=== PATIENT | female | born 1950 | race Caucasian/White ===

== ENCOUNTER 2018-07-06 13:56 | Emergency (ER) | payer MEDICARE ==
[2018-07-06 14:05] VITALS: TEMP 97.8
[2018-07-06] MEDS ORDERED: SODIUM CHLORIDE 0.9% 500 ML 500 ML IV STA (14:07)
[2018-07-06 14:56] LABS: Basophils # (A) 0.1 k/uL (0-0.2); Basophils % (A) 1 %; Eosinophils # (A) 0.3 k/uL (0-0.7); Eosinophils % (A) 4 %; HCT 41.5 % (34.0-46.0); HGB 12.8 gm/dL (11.4-16.0); Hypochromasia Marked; Lymphocytes # (A) 1.3 k/uL (1.0-4.8); Lymphocytes % (A) 16 %; MCH 32.5 pg (25.0-35.0); MCHC 30.9 g/dL (31.0-37.0); MCV 105.1 fL (80.0-100.0); Macrocytosis Slight; Mean Platelet Volume 8.5; Monocytes # (A) 0.5 k/uL (0-1.0); Monocytes % (A) 6 %; Neutrophils # (A) 5.9 k/uL (1.3-7.7); Neutrophils % (A) 72 %; Platelet Count 247 k/uL (150-450); RBC 3.95 m/uL (3.80-5.40); WBC 8.2 k/uL (3.8-10.6)
[2018-07-06 14:57] LABS: Appearance,Urine Clear (Clear); Bilirubin,Urine Negative (Negative); Blood,Urine Negative (Negative); Color,Urine Light Yellow; Glucose,Urine (UA) Negative (Negative); Ketones,Urine Negative (Negative); Leukocyte Esterase,Urine Negative (Negative); Nitrite,Urine Negative (Negative); PH, Urine 6.5 (5.0-8.0); Protein,Urine Negative (Negative); Specific Gravity,Urine 1.003 (1.001-1.035); Urobilinogen,Urine <2.0 mg/dL (<2.0)
--- NOTE | 2018-07-06 15:02 | ED ---
General Adult HPI <Chapo Elliott - Last Filed: 07/06/18 18:20> - General Source: patient Mode of arrival: ambulatory Limitations: no limitations <Janet Escalante - Last Filed: 07/06/18 22:32> - General Chief complaint: Shortness of Breath Stated complaint: SOB, Poss anemic, back pain Time Seen by Provider: 07/06/18 14:07 - History of Present Illness Initial comments: 67-year-old female with past medical history of anemia, coronary artery disease (stent placed denied acute MD), hyperlipidemia presenting today for complaints. Patient states that yesterday she had left sided flank pain, she states it began yesterday and has been constant fluctuating in intensity, she denies any current pain. She states there is a family history of kidney stones however patient has not had a personal history. Patient denies a dysuria, urgency, frequency, hematuria, she denies any abdominal pain, nausea or vomiting. Patient denies a chest pain, upper extremity paresthesias, neck jaw or shoulder pain. Patient states that this is what brought her to the emergency department. Patient also noted that she has anemia and has felt more short of breath, fatigued and weaker than usual for the past 2 months, no acute changes in the last few days, consistently the same feelings. She states this is generalized weakness she denies any focal symptoms. Patient states she has been napping when usual. Patient states this has been ongoing for probably the past 6-8 weeks. She states she was seen by her primary care provider 8 weeks ago where she was lowered from her twice daily iron supplements to 1 time daily. Patient feels there could be an association. Patient is concerned that her hemoglobin is low. Remaining review of systems negative patient denies any modifying factors of the dyspnea. Pt denies any upper thoracic back pain, trauma or injury to the back. Denies any fever, chills or night sweats. Pt denies any recent travel, history of blood clot, calf pain, lower extremity swelling, recent surgeries, history of cancer. Pt states he stools are dark from her supplements, denies any changes, denies jose antonio red blood. Remaining ROS (-). Upon arrival pt VS revealed hypoxia at 90%-upon chart review this is similar to readings of 06/2015. BP within acceptable limits, HR 72 bpm, breaths are unlabored upon history taking. States was a smoker 15 years ago, and had used inhaler for past few days to see if it would help (no COPD or asthma diagnosis), with no relief. or change in symptoms. (Janet Escalante) - Related Data Home Medications Medication Instructions Recorded Confirmed ALPRAZolam [Xanax] 1 mg PO HS 06/30/15 07/06/18 Aspirin EC [Ecotrin Low Dose] 81 mg PO DAILY 06/30/15 07/06/18 Pravastatin Sodium [Pravachol] 40 mg PO DAILY 06/30/15 07/06/18 Albuterol Sulfate [Ventolin HFA] 2 puff INHALATION RT-QID PRN 07/05/15 07/06/18 Ferrous Sulfate [Feosol] 325 mg PO DAILY 07/06/18 07/06/18 Allergies Allergy/AdvReac Type Severity Reaction Status Date / Time morphine AdvReac HEADACHE/na Verified 07/06/18 16:07 usea Review of Systems ROS Other: All systems not noted in ROS Statement are negative. <Chapo Elliott - Last Filed: 07/06/18 18:20> ROS Other: All systems not noted in ROS Statement are negative. <Janet Escalante - Last Filed: 07/06/18 22:32> ROS Statement: Those systems with pertinent positive or pertinent negative responses have been documented in the HPI. 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 History of Any Multi-Drug Resistant Organisms: None Reported Past Surgical History: Adenoidectomy, Appendectomy, Bladder Surgery, Cholecystectomy, Heart Catheterization With Stent, Hysterectomy, Tonsillectomy Additional Past Surgical History / Comment(s): rectocele, lump removed from rt breast when younger-was benign, egd, colonoscopy had polyp removed Date of Last Stent Placement:: unk Past Psychological History: Anxiety Smoking Status: Former smoker Past Alcohol Use History: Occasional Past Drug Use History: None Reported - Past Family History Sister(s) Family Medical History: Cancer Additional Family Medical History / Comment(s): colon cancer <Janet Escalante - Last Filed: 07/06/18 22:32> General Exam <Chapo Elliott - Last Filed: 07/06/18 18:20> Limitations: no limitations <Janet Escalante - Last Filed: 07/06/18 22:32> - General Exam Comments Initial Comments: General: The patient is awake and alert, in no distress, and does not appear acutely ill. Eye: Pupils are equal, round and reactive to light, extra-ocular movements are intact. No nystagmus. There is normal conjunctiva bilaterally. No signs of icterus. Ears, nose, mouth and throat: There are moist mucous membranes and no oral lesions. Neck: The neck is supple, there is no tenderness or JVD. Cardiovascular: There is a regular rate and rhythm. No murmur, rub or gallop is appreciated. Respiratory: Lungs are clear to auscultation, respirations are non-labored, breath sounds are equal. No wheezes, stridor, rales, or rhonchi. No areas of focal consolidation. Pt use of accessory muscles, abdominal breathing, or retractions. Gastrointestinal: Soft, non-distended, non-tender abdomen without masses or organomegaly noted. There is no rebound or guarding present. No CVA tenderness. Bowel sounds are unremarkable. Musculoskeletal: Normal ROM, no tenderness. Strength 5/5. Sensation intact. Radial pulses equal bilaterally 2+. Neurological: A&O x 3. CN II-XII intact, There are no obvious motor or sensory deficits. Coordination appears grossly intact. Speech is normal. Skin: Skin is warm and dry and no rashes or lesions are noted. Mild clubbing of digits. Psychiatric: Cooperative, appropriate mood & affect, normal judgment. (Janet Escalante) Vital Signs 07/06/18 07/06/18 07/06/18 14:02 14:33 15:00 Temperature 97.8 F Pulse Rate 78 Respiratory 20 Rate Blood Pressure 156/72 152/77 O2 Sat by Pulse 90 L 95 98 Oximetry 07/06/18 07/06/18 07/06/18 15:30 16:00 16:30 Temperature Pulse Rate Respiratory Rate Blood Pressure 152/77 152/77 152/77 O2 Sat by Pulse 93 L 96 Oximetry 07/06/18 07/06/18 07/06/18 17:00 17:13 17:30 Temperature Pulse Rate 65 Respiratory 18 Rate Blood Pressure 142/60 125/45 135/72 O2 Sat by Pulse 98 97 97 Oximetry 07/06/18 07/06/18 07/06/18 18:00 18:30 19:10 Temperature 97.8 F Pulse Rate 65 Respiratory 18 Rate Blood Pressure 139/68 139/68 139/68 O2 Sat by Pulse 97 Oximetry EKG Findings - EKG Comments: EKG Findings:: A 12-lead EKG was performed and shows the following: Rate is 75bpm, and rhythm is normal sinus. There are normal QRS complexes. Possible left atrial enlargment. ST segments have no elevation or depression, and TN segments appear normal. <Janet Escalante - Last Filed: 07/06/18 22:32> Medical Decision Making - Lab Data Result diagrams: 07/06/18 14:31 07/06/18 14:31 <Chapo Elliott - Last Filed: 07/06/18 18:20> - Lab Data Result diagrams: 07/06/18 14:31 07/06/18 14:31 <Janet Escalante - Last Filed: 07/06/18 22:32> - Medical Decision Making Medical decision making; is a 67-year-old female with a complaint of persistent shortness of breath and fatigue for 6-8 weeks. Using her inhaler frequently. Increased fatigue which has not been common prior to 2 months ago. Chest x-ray suggested COPD. Auscultation of lungs show some crepitant rales on the left lung field. We did discuss admission for evaluation for COPD but the patient declines wants to do it as an outpatient follow-up. The lab will call for her results of her thyroid panel. Again the patient is leaving after being advised to be admitted the hospital for evaluation for COPD. Dr. Elliott (Chapo Elliott) 67 yo female presenting for SOB, fatigue x 6-8 weeks. Pt labs reveal mild elevation of CO2, I did recommend arterial blood gas, pt refused. Pt hypoxic upon arrival at 90% on chart review this appears to be present in 2016. D-dimer (-), Troponin (-), no acute ekg findings. CXR consistent with COPD, no wheezing on exam, initial exam no rhonchi, very mild of the left upper lung packer. On CT abdomen there was urtherthral reticulum, possible stone however UA no hematuria. Pt denies any flank pain stating since she arrived at the ER it completely resolved. Benign abdominal exam. Pt was evaluated by attending provider, Dr. Elliott and we recommend admission for evaluation by installer molding and trim. Pt refused to stay stating she needs to go home for her dog, she states she would rather be worked up by her primary and would return for worsening symptoms. Pt discharged with strict return parameters and close primary f/u. Pt appeared well, no overt signs of respiratory distress. TSH pending. (Janet Escalante) - Lab Data Lab Results 07/06/18 07/06/18 07/06/18 Range/Units 14:30 14:31 14:31 WBC 8.2 (3.8-10.6) k/uL RBC 3.95 (3.80-5.40) m/uL Hgb 12.8 (11.4-16.0) gm/dL Hct 41.5 (34.0-46.0) % MCV 105.1 H (80.0-100.0) fL MCH 32.5 (25.0-35.0) pg MCHC 30.9 L (31.0-37.0) g/dL RDW 13.0 (11.5-15.5) % Plt Count 247 (150-450) k/uL Neutrophils % 72 % Lymphocytes % 16 % Monocytes % 6 % Eosinophils % 4 % Basophils % 1 % Neutrophils # 5.9 (1.3-7.7) k/uL Lymphocytes # 1.3 (1.0-4.8) k/uL Monocytes # 0.5 (0-1.0) k/uL Eosinophils # 0.3 (0-0.7) k/uL Basophils # 0.1 (0-0.2) k/uL Hypochromasia Marked Macrocytosis Slight PT (9.0-12.0) sec INR (<1.2) APTT (22.0-30.0) sec D-Dimer (<0.60) mg/L FEU Sodium (137-145) mmol/L Potassium (3.5-5.1) mmol/L Chloride (98-107) mmol/L Carbon Dioxide (22-30) mmol/L Anion Gap mmol/L BUN (7-17) mg/dL Creatinine (0.52-1.04) mg/dL Est GFR (CKD-EPI)AfAm (>60 ml/min/1.73 sqM) Est GFR (CKD-EPI)NonAf (>60 ml/min/1.73 sqM) Glucose (74-99) mg/dL Calcium (8.4-10.2) mg/dL Total Bilirubin (0.2-1.3) mg/dL AST (14-36) U/L ALT (9-52) U/L Alkaline Phosphatase (38-126) U/L Total Creatine Kinase 61 (30-135) U/L CK-MB (CK-2) 0.7 (0.0-2.4) ng/mL CK-MB (CK-2) Rel Index 1.1 Troponin I <0.012 (0.000-0.034) ng/mL Total Protein (6.3-8.2) g/dL Albumin (3.5-5.0) g/dL Urine Color Urine Appearance (Clear) Urine pH (5.0-8.0) Ur Specific Friedens (1.001-1.035) Urine Protein (Negative) Urine Glucose (UA) (Negative) Urine Ketones (Negative) Urine Blood (Negative) Urine Nitrite (Negative) Urine Bilirubin (Negative) Urine Urobilinogen (<2.0) mg/dL Ur Leukocyte Esterase (Negative) Stool Occult Blood Positive H (Negative) 07/06/18 07/06/18 07/06/18 Range/Units 14:31 14:31 14:31 WBC (3.8-10.6) k/uL RBC (3.80-5.40) m/uL Hgb (11.4-16.0) gm/dL Hct (34.0-46.0) % MCV (80.0-100.0) fL MCH (25.0-35.0) pg MCHC (31.0-37.0) g/dL RDW (11.5-15.5) % Plt Count (150-450) k/uL Neutrophils % % Lymphocytes % % Monocytes % % Eosinophils % % Basophils % % Neutrophils # (1.3-7.7) k/uL Lymphocytes # (1.0-4.8) k/uL Monocytes # (0-1.0) k/uL Eosinophils # (0-0.7) k/uL Basophils # (0-0.2) k/uL Hypochromasia Macrocytosis PT 10.9 (9.0-12.0) sec INR 1.0 (<1.2) APTT 24.6 (22.0-30.0) sec D-Dimer (<0.60) mg/L FEU Sodium 138 (137-145) mmol/L Potassium 4.6 (3.5-5.1) mmol/L Chloride 96 L (98-107) mmol/L Carbon Dioxide 34 H (22-30) mmol/L Anion Gap 8 mmol/L BUN 9 (7-17) mg/dL Creatinine 0.51 L (0.52-1.04) mg/dL Est GFR (CKD-EPI)AfAm >90 (>60 ml/min/1.73 sqM) Est GFR (CKD-EPI)NonAf >90 (>60 ml/min/1.73 sqM) Glucose 104 H (74-99) mg/dL Calcium 9.5 (8.4-10.2) mg/dL Total Bilirubin 0.6 (0.2-1.3) mg/dL AST 29 (14-36) U/L ALT 28 (9-52) U/L Alkaline Phosphatase 85 (38-126) U/L Total Creatine Kinase (30-135) U/L CK-MB (CK-2) (0.0-2.4) ng/mL CK-MB (CK-2) Rel Index Troponin I (0.000-0.034) ng/mL Total Protein 7.3 (6.3-8.2) g/dL Albumin 4.5 (3.5-5.0) g/dL Urine Color Light Yellow Urine Appearance Clear (Clear) Urine pH 6.5 (5.0-8.0) Ur Specific Friedens 1.003 (1.001-1.035) Urine Protein Negative (Negative) Urine Glucose (UA) Negative (Negative) Urine Ketones Negative (Negative) Urine Blood Negative (Negative) Urine Nitrite Negative (Negative) Urine Bilirubin Negative (Negative) Urine Urobilinogen <2.0 (<2.0) mg/dL Ur Leukocyte Esterase Negative (Negative) Stool Occult Blood (Negative) 07/06/18 Range/Units 14:31 WBC (3.8-10.6) k/uL RBC (3.80-5.40) m/uL Hgb (11.4-16.0) gm/dL Hct (34.0-46.0) % MCV (80.0-100.0) fL MCH (25.0-35.0) pg MCHC (31.0-37.0) g/dL RDW (11.5-15.5) % Plt Count (150-450) k/uL Neutrophils % % Lymphocytes % % Monocytes % % Eosinophils % % Basophils % % Neutrophils # (1.3-7.7) k/uL Lymphocytes # (1.0-4.8) k/uL Monocytes # (0-1.0) k/uL Eosinophils # (0-0.7) k/uL Basophils # (0-0.2) k/uL Hypochromasia Macrocytosis PT (9.0-12.0) sec INR (<1.2) APTT (22.0-30.0) sec D-Dimer 0.36 (<0.60) mg/L FEU Sodium (137-145) mmol/L Potassium (3.5-5.1) mmol/L Chloride (98-107) mmol/L Carbon Dioxide (22-30) mmol/L Anion Gap mmol/L BUN (7-17) mg/dL Creatinine (0.52-1.04) mg/dL Est GFR (CKD-EPI)AfAm (>60 ml/min/1.73 sqM) Est GFR (CKD-EPI)NonAf (>60 ml/min/1.73 sqM) Glucose (74-99) mg/dL Calcium (8.4-10.2) mg/dL Total Bilirubin (0.2-1.3) mg/dL AST (14-36) U/L ALT (9-52) U/L Alkaline Phosphatase (38-126) U/L Total Creatine Kinase (30-135) U/L CK-MB (CK-2) (0.0-2.4) ng/mL CK-MB (CK-2) Rel Index Troponin I (0.000-0.034) ng/mL Total Protein (6.3-8.2) g/dL Albumin (3.5-5.0) g/dL Urine Color Urine Appearance (Clear) Urine pH (5.0-8.0) Ur Specific Friedens (1.001-1.035) Urine Protein (Negative) Urine Glucose (UA) (Negative) Urine Ketones (Negative) Urine Blood (Negative) Urine Nitrite (Negative) Urine Bilirubin (Negative) Urine Urobilinogen (<2.0) mg/dL Ur Leukocyte Esterase (Negative) Stool Occult Blood (Negative) Disposition <Chapo Elliott - Last Filed: 07/06/18 18:20> Is patient prescribed a controlled substance at d/c from ED?: No Time of Disposition: 18:20 <Janet Escalante - Last Filed: 07/06/18 22:32> Clinical Impression: Urethral diverticulum, Flank pain, Shortness of breath, Hypoxia Disposition: HOME SELF-CARE Instructions (If sedation given, give patient instructions): Dyspnea (ED) Additional Instructions: Please use medication as discussed. Please follow-up with family doctor in the next 24 hours. Please return to emergency room if the symptoms increase or worsen or for any other concerns. Referrals: Nonstaff,Physician [Primary Care Provider] - 1-2 days
[2018-07-06 15:05] LABS: Partial Thromboplastin Time 24.6 sec (22.0-30.0); Prothrombin Time 10.9 sec (9.0-12.0)
[2018-07-06 15:09] LABS: ALT 28 U/L (9-52); AST 29 U/L (14-36); Albumin 4.5 g/dL (3.5-5.0); Alkaline Phosphatase 85 U/L (38-126); Anion Gap 8 mmol/L; Blood Urea Nitrogen 9 mg/dL (7-17); Calcium 9.5 mg/dL (8.4-10.2); Carbon Dioxide 34 mmol/L (22-30); Chloride 96 mmol/L (98-107); Glucose 104 mg/dL (74-99); Potassium 4.6 mmol/L (3.5-5.1); Sodium 138 mmol/L (137-145); Total Bilirubin 0.6 mg/dL (0.2-1.3); Total Protein 7.3 g/dL (6.3-8.2)
[2018-07-06 15:21] LABS: Creatine Kinase 61 U/L (30-135)
[2018-07-06 15:33] LABS: Creatine Kinase MB 0.7 ng/mL (0.0-2.4); Troponin I <0.012 ng/mL (0.000-0.034)
--- NOTE | 2018-07-06 15:34 | XR ---
EXAMINATION TYPE: XR chest 2V DATE OF EXAM: 07/06/2018 COMPARISON: NONE HISTORY: Shortness of breath TECHNIQUE: Frontal and lateral views of the chest are obtained. FINDINGS: Scattered senescent parenchymal changes noted. Hyperinflation compatible with COPD. No evidence for infiltrate. No evidence for atelectasis. Heart size is stable. Mediastinal structures are stable and grossly unremarkable. No evidence for hilar prominence. Degenerative changes dorsal spine. IMPRESSION: 1. No evidence for acute pulmonary disease.
[2018-07-06 17:15] VITALS: PULSE 65; RESP 18
--- NOTE | 2018-07-06 17:25 | CT ---
EXAMINATION TYPE: CT abdomen pelvis w con DATE OF EXAM: 07/06/2018 COMPARISON: 06/30/2015 HISTORY: Left flank pain. CT DLP: 559.2 mGycm Automated exposure control for dose reduction was used. TECHNIQUE: Helical acquisition of images was performed from the lung bases through the pelvis. CONTRAST: Performed without Oral Contrast and with IV Contrast, patient injected with 100 mL of Isovue 300. FINDINGS: Lung bases are clear. There is no pleural effusion. Heart size is normal. The Liver and spleen appear normal. There is diffuse fatty infiltration of the pancreas. I see no discret e pancreatic mass. There are clips from cholecystectomy. Bile ducts are not dilated. There is no adrenal mass. Kidneys show satisfactory contrast opacification. There is no hydronephrosi s. Ureters are not dilated. Abdominal aorta is atheromatous. There is no retroperitoneal adenopathy. Bladder distends smoothly. There is no free fluid in the pelvis. There is no inguinal hernia. There i s hysterectomy noted. There is 6 mm calcification at the floor of the pelvis that could be a calculus in the urethra. There is no inguinal mass. There is no mesenteric edema. There is no ascites. There is no sign of free air. I see no bony destructive process. There is some spurring in the lumbar spine . There is no mesenteric adenopathy. Appendix is not seen. There is no sign of appendicitis. IMPRESSION: FATTY INFILTRATION OF THE PANCREAS. NO RENAL STONE OR OBSTRUCTION. POSSIBLE URETHRAL CALCULUS OR A UR ETHRAL DIVERTICULUM WITH CALCULUS.
[2018-07-06] MEDS ORDERED: methylPREDNISolone SOD SUCCI 125 MG/2 ML VIAL IV STA (18:20)
[2018-07-06 18:40] VITALS: BP 139/68
== END 2018-07-06 19:09 | disposition home or self-care (01) ==
LOC: EC 13:56
DX: R06.02 Shortness of breath (principal); R09.02 Hypoxemia; N36.1 Urethral diverticulum; D64.9 Anemia, unspecified; E78.5 Hyperlipidemia, unspecified; I25.10 Atherosclerotic heart disease of native coronary artery without angina pectoris; F41.9 Anxiety disorder, unspecified; Z87.19 Personal history of other diseases of the digestive system; Z90.49 Acquired absence of other specified parts of digestive tract; Z90.710 Acquired absence of both cervix and uterus; Z95.5 Presence of coronary angioplasty implant and graft; Z87.891 Personal history of nicotine dependence; Z53.29 Procedure and treatment not carried out because of patient's decision for other reasons; Z79.82 Long term (current) use of aspirin; Z79.899 Other long term (current) drug therapy; Z88.5 Allergy status to narcotic agent
CPT/HCPCS: 36415; 93005; 85379; 80053; 84443; 82550; 82553; 84484; 85025; 85610; 85730; 82272; 81003; 71046; 74177; 99285; 96374; 96361 ×5; J2930; Q9967

== ENCOUNTER 2023-06-22 11:39 | Emergency (ER) | payer MEDICARE ==
--- NOTE | 2023-06-22 11:57 | ED ---
General Adult HPI - General Chief complaint: Wound/Laceration Stated complaint: Laceration on right arm, possible infection Time Seen by Provider: 06/22/23 11:48 Source: patient, RN notes reviewed Mode of arrival: ambulatory Limitations: no limitations - History of Present Illness Initial comments: Patient is a 52-year-old female presented to the ER with a chief complaint of right elbow swelling and pain. Patient states about 1 week ago she scraped her elbow in her garage. She believes it was a piece of metal. She states it was not bugging her then and did not seek medical attention at that time. Patient states about 2 days ago her elbow started to swell and she started to have pain with range of motion. Patient also was endorsing increasing surrounding redness around healing laceration. Patient denies any fevers, chills, night sweats. Tetanus status is unknown. Denies any chest pain, shortness of breath, abdominal pain, peripheral edema. - Related Data Home Medications Medication Instructions Recorded Confirmed ALPRAZolam [Xanax] 1 mg PO HS 06/30/15 07/06/18 Aspirin EC [Ecotrin Low Dose] 81 mg PO DAILY 06/30/15 07/06/18 Pravastatin Sodium [Pravachol] 40 mg PO DAILY 06/30/15 07/06/18 Albuterol Sulfate [Ventolin HFA] 2 puff INHALATION RT-QID PRN 07/05/15 07/06/18 Ferrous Sulfate [Feosol] 325 mg PO DAILY 07/06/18 07/06/18 Previous Rx's Medication Instructions Recorded clindamycin HCL 300 mg PO TID 10 Days #30 cap 06/22/23 Allergies Allergy/AdvReac Type Severity Reaction Status Date / Time morphine AdvReac HEADACHE/na Verified 06/22/23 11:46 usea Review of Systems ROS Statement: Those systems with pertinent positive or pertinent negative responses have been documented in the HPI. ROS Other: All systems not noted in ROS Statement are negative. 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 History of Any Multi-Drug Resistant Organisms: None Reported Past Surgical History: Adenoidectomy, Appendectomy, Bladder Surgery, Cholecystectomy, Heart Catheterization With Stent, Hysterectomy, Tonsillectomy Additional Past Surgical History / Comment(s): rectocele, lump removed from rt breast when younger-was benign, egd, colonoscopy had polyp removed Date of Last Stent Placement:: unk Past Psychological History: Anxiety Smoking Status: Never smoker Past Alcohol Use History: Occasional Past Drug Use History: None Reported - Past Family History Sister(s) Family Medical History: Cancer Additional Family Medical History / Comment(s): colon cancer General Exam Limitations: no limitations General appearance: alert, in no apparent distress Head exam: Present: atraumatic, normocephalic, normal inspection Eye exam: Present: normal appearance, PERRL, EOMI. Absent: scleral icterus, conjunctival injection, periorbital swelling Respiratory exam: Present: normal lung sounds bilaterally. Absent: respiratory distress, wheezes, rales, rhonchi, stridor Cardiovascular Exam: Present: regular rate, normal rhythm, normal heart sounds. Absent: systolic murmur, diastolic murmur, rubs, gallop, clicks Right Elbow exam: Present: tenderness, swelling, erythema, other (1 cm healing wound over lateral epicondyles. Surrounding erythema. Noticeable edema and tenderness to olecranon process. Patient has full active range of motion with pain. 2+ right radial pulse. Skin is warm to touch) Neurological exam: Present: alert, oriented X3, CN II-XII intact Psychiatric exam: Present: normal affect, normal mood Skin exam: Present: warm, dry, intact, normal color. Absent: rash Course Vital Signs 06/22/23 06/22/23 06/22/23 11:42 13:39 13:49 Temperature 98.0 F 98.2 F Pulse Rate 110 H 89 84 Respiratory 18 18 18 Rate Blood Pressure 166/71 117/62 117/62 O2 Sat by Pulse 94 L 95 96 Oximetry Medical Decision Making - Medical Decision Making Was pt. sent in by a medical professional or institution (, PA, CLOTHING CUTTER, urgent care, hospital, or longterm...) When possible be specific @ -No Did you speak to anyone other than the patient for history (EMS, parent, family, police, friend...)? What history was obtained from this source @ -No Did you review nursing and triage notes (agree or disagree)? Why? @ -I reviewed and agree with nursing and triage notes Were old charts reviewed (outside hosp., previous admission, EMS record, old EKG, old radiological studies, urgent care reports/EKG's, longterm records)? Report findings @ -No old charts were reviewed Differential Diagnosis (chest pain, altered mental status, abdominal pain women, abdominal pain men, vaginal bleeding, weakness, fever, dyspnea, syncope, headache, dizziness, GI bleed, back pain, seizure, CVA, palpatations, mental health, musculoskeletal)? @ -Differential Musculoskeletal Muscular strain, contusion, ligament sprain, fracture, arthritis, septic arthritis, bursitis, cellulitis, muscle spasm, nerve compression, DVT, arterial occlusion, herpes zoster, electrolyte abnormality, tumor.... This is not meant to be in all inclusive list] EKG interpreted by me (3pts min.). @ -None X-rays interpreted by me (1pt min.). @ -Right elbow x-ray interpreted by me shows no acute process. CT interpreted by me (1pt min.). @ -None done U/S interpreted by me (1pt. min.). @ -None done What testing was considered but not performed or refused? (CT, X-rays, U/S, labs)? Why? @ -None What meds were considered but not given or refused? Why? @ -None Did you discuss the management of the patient with other professionals (professionals i.e. , PA, CLOTHING CUTTER, lab, RT, psych nurse, director of social work, geospatial applications developer, teacher, ordnance corps officer, case advocate)? Give summary @ -No Was smoking cessation discussed for >3mins.? @ -No Was critical care preformed (if so, how long)? @ -No Were there social determinants of health that impacted care today? How? (Homelessness, low income, unemployed, alcoholism, drug addiction, transportation, low edu. Level, literacy, decrease access to med. care, assisted, rehab)? @ -No Was there de-escalation of care discussed even if they declined (Discuss DNR or withdrawal of care, Hospice)? DNR status @ -No What co-morbidities impacted this encounter? (DM, HTN, Smoking, COPD, CAD, Cancer, CVA, ARF, Chemo, Hep., AIDS, mental health diagnosis, sleep apnea, morbid obesity)? @ -None Was patient admitted / discharged? Hospital course, mention meds given and route, prescriptions, significant lab abnormalities, going to OR and other pertinent info. @ -Discharge. Patient is a 72-year-old female presenting the ER with a chief complaint of right elbow swelling and redness x 2 days. Vitals stable. History and physical exam were completed. Right upper extremity neurovascular intact. Patient had full active range of motion with mild pain of flexion and extension of elbow. Elbow was edematous with surrounding erythema. Labs obtained in ER significant for white blood cell count 18 and CRP 6. X-ray showed no acute process. I discussed lab and imaging findings with patient. Patient prescribed clindamyci n. Educated her on the importance of completing full course antibiotics. Return parameters were discussed. Patient be discharged stable condition follow-up to PCP. Patient expressed understanding and agreement with care plan. Undiagnosed new problem with uncertain prognosis? @ -No Drug Therapy requiring intensive monitoring for toxicity (Heparin, Nitro, Insulin, Cardizem)? @ -No Were any procedures done? @ -No Diagnosis/symptom? @ -Cellulitis Acute, or Chronic, or Acute on Chronic? @ -Acute Uncomplicated (without systemic symptoms) or Complicated (systemic symptoms)? @ -Uncomplicated Side effects of treatment? @ -No Exacerbation, Progression, or Severe Exacerbation? @ -No Poses a threat to life or bodily function? How? (Chest pain, [place], [place], pneumonia, PE, COPD, DKA, ARF, appy, cholecystitis, CVA, Diverticulitis, Homicidal, Suicidal, threat to staff... and all critical care pts) @ -No - Lab Data Result diagrams: 06/22/23 11:57 06/22/23 11:57 Lab Results 06/22/23 06/22/23 06/22/23 Range/Units 11:57 11:57 11:57 WBC 18.1 H (3.8-10.6) k/uL RBC 4.54 (3.80-5.40) m/uL Hgb 14.4 (11.4-16.0) gm/dL Hct 45.1 (34.0-46.0) % MCV 99.4 (80.0-100.0) fL MCH 31.8 (25.0-35.0) pg MCHC 32.0 (31.0-37.0) g/dL RDW 11.9 (11.5-15.5) % Plt Count 233 (150-450) k/uL MPV 9.5 Sodium 136 L (137-145) mmol/L Potassium 4.7 (3.5-5.1) mmol/L Chloride 104 (98-107) mmol/L Carbon Dioxide 28 (22-30) mmol/L Anion Gap 4 mmol/L BUN 13 (7-17) mg/dL Creatinine 0.41 L (0.52-1.04) mg/dL Est GFR (CKD-EPI)AfAm >90 (>60 ml/min/1.73 sqM) Est GFR (CKD-EPI)NonAf >90 (>60 ml/min/1.73 sqM) Glucose 193 H (74-99) mg/dL Plasma Lactic Acid Cortez 1.4 (0.7-2.0) mmol/L Calcium 9.1 (8.4-10.2) mg/dL Total Bilirubin 1.1 (0.2-1.3) mg/dL AST 41 H (14-36) U/L ALT 22 (4-34) U/L Alkaline Phosphatase 70 (38-126) U/L C-Reactive Protein 6.0 H (<1.0) mg/dL Total Protein 6.7 (6.3-8.2) g/dL Albumin 4.1 (3.5-5.0) g/dL - Radiology Data Radiology results: report reviewed, image reviewed Disposition Clinical Impression: Cellulitis Disposition: HOME SELF-CARE Condition: Stable Additional Instructions: Please complete full course of antibiotics. You may take OTC tylenol or motrin for pain control. Return to the ER for any new or worsening symptoms. Prescriptions: clindamycin HCL 300 mg PO TID 10 Days #30 cap Is patient prescribed a controlled substance at d/c from ED?: No Referrals: Viral Landry MD [Primary Care Provider] - 1-2 days Time of Disposition: 13:14
[2023-06-22 12:14] VITALS: RESP 18
[2023-06-22 12:16] LABS: HCT 45.1 % (34.0-46.0); HGB 14.4 gm/dL (11.4-16.0); MCH 31.8 pg (25.0-35.0); MCV 99.4 fL (80.0-100.0); Mean Platelet Volume 9.5; Platelet Count 233 k/uL (150-450); RBC 4.54 m/uL (3.80-5.40); RDW 11.9 % (11.5-15.5); WBC 18.1 k/uL (3.8-10.6)
[2023-06-22 12:31] LABS: ALT 22 U/L (4-34); African American GFR (CKD) >90 (>60 ml/min/1.73 sqM); Albumin 4.1 g/dL (3.5-5.0); Anion Gap 4 mmol/L; Blood Urea Nitrogen 13 mg/dL (7-17); Calcium 9.1 mg/dL (8.4-10.2); Carbon Dioxide 28 mmol/L (22-30); Chloride 104 mmol/L (98-107); Glucose 193 mg/dL (74-99); Non-African American GFR(CKD) >90 (>60 ml/min/1.73 sqM); Sodium 136 mmol/L (137-145); Total Bilirubin 1.1 mg/dL (0.2-1.3); Total Protein 6.7 g/dL (6.3-8.2)
[2023-06-22 12:33] LABS: AST 41 U/L (14-36); Alkaline Phosphatase 70 U/L (38-126); Potassium 4.7 mmol/L (3.5-5.1)
--- NOTE | 2023-06-22 12:50 | XR ---
EXAMINATION TYPE: XR elbow complete RT DATE OF EXAM: 06/22/2023 COMPARISON: NONE HISTORY: Pain FINDINGS: Three views of the elbow demonstrate no pathologic joint effusion. The osseous structures are intact . There is no acute fracture or dislocation. Epicondylar spurring noted. IMPRESSION: 1. No acute fracture or dislocation. If symptoms persist follow-up study in 7 to 10 days could be ob tained.
[2023-06-22 13:44] VITALS: BP 117/62
[2023-06-22] MEDS: DIPH,PERTUS(ACELL)TETVAC-LF 0.5 ML VIAL IM ONE (13:45)
[2023-06-22 14:14] VITALS: PULSE 84; TEMP 98.2
[2023-06-22 15:56] LABS: Erythrocyte Sedimentation Rate 35 mm/Hr (0-30)
== END 2023-06-22 13:52 | disposition home or self-care (01) ==
LOC: EC 11:39
DX: L03.113 Cellulitis of right upper limb (principal); E78.5 Hyperlipidemia, unspecified; F41.9 Anxiety disorder, unspecified; Z23 Encounter for immunization; Z79.899 Other long term (current) drug therapy; Z79.82 Long term (current) use of aspirin; Z88.5 Allergy status to narcotic agent
CPT/HCPCS: 36415; 80053; 83605; 85027; 85652; 86140; 90471; 90715; 99283

== ENCOUNTER 2023-07-06 13:13 | Emergency (ER) | payer MEDICARE ==
[2023-07-06 13:40] VITALS: BP 144/75; PULSE 69; RESP 18
--- NOTE | 2023-07-06 14:01 | ED ---
General Adult HPI - General Chief complaint: Recheck/Abnormal Lab/Rx Stated complaint: Swollen R elbow Time Seen by Provider: 07/06/23 13:46 Source: patient Mode of arrival: ambulatory Limitations: no limitations - History of Present Illness Initial comments: Dictation was produced using [email or web address] dictation software. please excuse any grammatical, word or spelling errors. Chief Complaint: 72-year-old female concerned of elbow infection History of Present Illness: Patient 72-year-old female she 3 weeks ago was diagnosed with bursitis. She states that she probably hit her elbow on something while cleaning the garage. At that time it was reportedly fluctuant. She was prescribed clindamycin. Patient completed clindamycin prescription states that she got some diarrhea with it. Patient then feels like her symptoms did not fully clear. She seen at the urgent care and was prescribed Keflex yesterday. Patient states she is nervous about taking Keflex because she is worried about getting diarrhea since she has been losing weight. She is working closely with her primary care doctor regarding her chronic issues. Denies any fever, chills or night sweats. The ROS documented in this emergency department record has been reviewed and confirmed by me. Those systems with pertinent positive or negative responses have been documented in the HPI. All other systems are other negative and/or noncontributory. - Related Data Home Medications Medication Instructions Recorded Confirmed ALPRAZolam [Xanax] 1 mg PO HS 06/30/15 07/06/18 Aspirin EC [Ecotrin Low Dose] 81 mg PO DAILY 06/30/15 07/06/18 Pravastatin Sodium [Pravachol] 40 mg PO DAILY 06/30/15 07/06/18 Albuterol Sulfate [Ventolin HFA] 2 puff INHALATION RT-QID PRN 07/05/15 07/06/18 Ferrous Sulfate [Feosol] 325 mg PO DAILY 07/06/18 07/06/18 Previous Rx's Medication Instructions Recorded clindamycin HCL 300 mg PO TID 10 Days #30 cap 06/22/23 Allergies Allergy/AdvReac Type Severity Reaction Status Date / Time morphine AdvReac HEADACHE/na Verified 07/06/23 13:25 usea Review of Systems ROS Statement: Those systems with pertinent positive or pertinent negative responses have been documented in the HPI. ROS Other: All systems not noted in ROS Statement are negative. 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 History of Any Multi-Drug Resistant Organisms: None Reported Past Surgical History: Adenoidectomy, Appendectomy, Bladder Surgery, Cholecystectomy, Heart Catheterization With Stent, Hysterectomy, Tonsillectomy Additional Past Surgical History / Comment(s): rectocele, lump removed from rt breast when younger-was benign, egd, colonoscopy had polyp removed Date of Last Stent Placement:: unk Past Psychological History: Anxiety Smoking Status: Never smoker Past Alcohol Use History: Occasional Past Drug Use History: None Reported - Past Family History Sister(s) Family Medical History: Cancer Additional Family Medical History / Comment(s): colon cancer General Exam - General Exam Comments Initial Comments: General: Well-appearing, nontoxic, no acute distress. Head: Normocephalic, atraumatic Eyes: PERRLA, EOMI ENT: Airway patent Chest: Nonlabored breathing Skin: No visual rash, normal skin tone Neuro: Alert and oriented 3 Musculoskeletal: No gross abnormalities Right elbow: Mild erythema over the olecranon process, no fluctuance, no induration, right elbow is flexed and extended with no complications. Limitations: no limitations Course Vital Signs 07/06/23 13:20 Temperature 98.1 F Pulse Rate 69 Respiratory 18 Rate Blood Pressure 144/75 O2 Sat by Pulse 94 L Oximetry Medical Decision Making - Medical Decision Making Was pt. sent in by a medical professional or institution (, PA, MOTOR GENERATOR SET OPERATOR, urgent care, hospital, or residential...) When possible be specific @ -No Did you speak to anyone other than the patient for history (EMS, parent, family, police, friend...)? What history was obtained from this source @ -No Did you review nursing and triage notes (agree or disagree)? Why? @ -I reviewed and agree with nursing and triage notes Were old charts reviewed (outside hosp., previous admission, EMS record, old EKG, old radiological studies, urgent care reports/EKG's, residential records)? Report findings @ -No old charts were reviewed Differential Diagnosis (chest pain, altered mental status, abdominal pain women, abdominal pain men, vaginal bleeding, musculoskeletal, weakness, fever, dyspnea, syncope, headache, dizziness, GI bleed, back pain, seizure, CVA, palpatations, mental health)? @ -Not applicable EKG interpreted by me (3pts min.). @ -None done X-rays interpreted by me (1pt min.). @ -None done CT interpreted by me (1pt min.). @ -None done U/S interpreted by me (1pt. min.). @ -None done What testing was considered but not performed or refused? (CT, X-rays, U/S, l abs)? Why? @ -None What meds were considered but not given or refused? Why? @ -None Did you discuss the management of the patient with other professionals (professionals i.e. , PA, MOTOR GENERATOR SET OPERATOR, lab, RT, psych nurse, social media designer, label printing machinist, teacher, tax compliance officer, porter sample case)? Give summary @ -No Was smoking cessation discussed for >3mins.? @ -No Was critical care preformed (if so, how long)? @ -No Were there social determinants of health that impacted care today? How? (Homelessness, low income, unemployed, alcoholism, drug addiction, transportation, low edu. Level, literacy, decrease access to med. care, fci, rehab)? @ -No Was there de-escalation of care discussed even if they declined (Discuss DNR or withdrawal of care, Hospice)? DNR status @ -No What co-morbidities impacted this encounter? (DM, HTN, Smoking, COPD, CAD, Cancer, CVA, ARF, Chemo, Hep., AIDS, mental health diagnosis, sleep apnea, morbid obesity)? @ -None Was patient admitted / discharged? Hospital course, mention meds given and route, prescriptions, significant lab abnormalities, going to OR and other pertinent info. @ -72-year-old female presents to the emergency department for second opinion regarding Keflex to treat redness to the skin of her right elbow. Very low suspicion for cellulitis. Vital signs are stable. No concern for septic arthritis. Instructed patient that her symptoms would likely continue to improve with or without antibiotics. She is told to follow-up with her primary care doctor. Undiagnosed new problem with uncertain prognosis? @ -No Drug Therapy requiring intensive monitoring for toxicity (Heparin, Nitro, Insulin, Cardizem)? @ -No Were any procedures done? @ -No Diagnosis/symptom? Acute, or Chronic, or Acute on Chronic? Uncomplicated (without systemic symptoms) or Complicated (systemic symptoms)? @ -Right elbow pain Side effects of treatment? @ -No Exacerbation, Progression, or Severe Exacerbation? @ -No Poses a threat to life or bodily function? How? (Chest pain, [place], [place], pneumonia, PE, COPD, DKA, ARF, appy, cholecystitis, CVA, Diverticulitis, Homicidal, Suicidal, threat to staff... and all critical care pts) @ -No Disposition Clinical Impression: Elbow pain Disposition: HOME SELF-CARE Condition: Good Instructions (If sedation given, give patient instructions): Cephalexin (By mouth) Is patient prescribed a controlled substance at d/c from ED?: No Referrals: Viral Landry MD [Primary Care Provider] - 1-2 days Time of Disposition: 14:01
[2023-07-06 14:11] VITALS: TEMP 97.8
== END 2023-07-06 15:00 | disposition home or self-care (01) ==
LOC: EC 13:13
DX: M25.521 Pain in right elbow (principal); E78.5 Hyperlipidemia, unspecified; M19.90 Unspecified osteoarthritis, unspecified site; F41.9 Anxiety disorder, unspecified; I25.10 Atherosclerotic heart disease of native coronary artery without angina pectoris; Z79.899 Other long term (current) drug therapy; Z88.5 Allergy status to narcotic agent; Z90.49 Acquired absence of other specified parts of digestive tract
CPT/HCPCS: 99283

== ENCOUNTER 2024-05-24 17:05 | Emergency (ER) | payer MEDICARE ==
--- NOTE | 2024-05-24 18:18 | ED ---
URI HPI - General Chief Complaint: Upper Respiratory Infection Stated Complaint: COPD, exposure to COVID Time Seen by Provider: 05/24/24 17:17 Source: patient, RN notes reviewed Mode of arrival: ambulatory Limitations: no limitations - History of Present Illness Initial Comments: This is a 73-year-old female with history of COPD presenting for cough, co ngestion and sneezing x 4 days. Patient states she was recently diagnosed with COPD exacerbation by her PCP and provided Augmentin and Medrol Dosepak, endorsing some relief of symptoms. Patient endorses concern for COVID due to daughter's recent positive COVID test. States she was not tested for COVID by her PCP. Denies fever, chills, chest pain, dyspnea, abdominal pain, N/V/D, hemoptysis. MD Complaint: cough, nasal congestion Onset/Timin -: days(s) Treatments Prior to Arrival: antibiotics, other (Medrol Dosepak) - Related Data Home Medications Medication Instructions Recorded Confirmed ALPRAZolam [Xanax] 1 mg PO HS 06/30/15 07/06/18 Aspirin EC [Ecotrin Low Dose] 81 mg PO DAILY 06/30/15 07/06/18 Pravastatin Sodium [Pravachol] 40 mg PO DAILY 06/30/15 07/06/18 Albuterol Sulfate [Ventolin HFA] 2 puff INHALATION RT-QID PRN 07/05/15 07/06/18 Ferrous Sulfate [Feosol] 325 mg PO DAILY 07/06/18 07/06/18 Previous Rx's Medication Instructions Recorded clindamycin HCL 300 mg PO TID 10 Days #30 cap 06/22/23 Allergies Allergy/AdvReac Type Severity Reaction Status Date / Time morphine AdvReac HEADACHE/na Verified 05/24/24 17:16 usea Review of Systems ROS Statement: Those systems with pertinent positive or pertinent negative responses have been documented in the HPI. ROS Other: All systems not noted in ROS Statement are negative. 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 History of Any Multi-Drug Resistant Organisms: None Reported Past Surgical History: Adenoidectomy, Appendectomy, Bladder Surgery, Cholecystectomy, Heart Catheterization With Stent, Hysterectomy, Tonsillectomy Additional Past Surgical History / Comment(s): rectocele, lump removed from rt breast when younger-was benign, egd, colonoscopy had polyp removed Date of Last Stent Placement:: unk Past Psychological History: Anxiety Smoking Status: Never smoker Past Alcohol Use History: Occasional Past Drug Use History: None Reported - Past Family History Sister(s) Family Medical History: Cancer Additional Family Medical History / Comment(s): colon cancer General Exam Limitations: no limitations General appearance: alert, in no apparent distress Head exam: Present: atraumatic, normocephalic, normal inspection Eye exam: Present: normal appearance, PERRL, EOMI. Absent: scleral icterus, conjunctival injection, periorbital swelling ENT exam: Present: normal exam, mucous membranes moist Neck exam: Present: normal inspection. Absent: tenderness, meningismus, lymphadenopathy Respiratory exam: Present: wheezes, rhonchi, decreased breath sounds. Absent: respiratory distress, rales, stridor Cardiovascular Exam: Present: regular rate, normal rhythm, normal heart sounds. Absent: systolic murmur, diastolic murmur, rubs, gallop, clicks GI/Abdominal exam: Present: soft, normal bowel sounds. Absent: distended, tenderness, guarding, rebound, rigid Extremities exam: Present: normal inspection, full ROM, normal capillary refill. Absent: tenderness, pedal edema, joint swelling, calf tenderness Back exam: Present: normal inspection Neurological exam: Present: alert, oriented X3, CN II-XII intact Psychiatric exam: Present: normal affect, normal mood Skin exam: Present: warm, dry, intact, normal color. Absent: rash Course Vital Signs 05/24/24 05/24/24 17:16 18:04 Temperature 97.6 F Pulse Rate 66 Respiratory 18 20 Rate Blood Pressure 146/64 O2 Sat by Pulse 93 L Oximetry Medical Decision Making - Medical Decision Making Was pt. sent in by a medical professional or institution (TOBY Castro, SENIOR ENERGY MARKET COORDINATOR, urgent care, hospital, or senior living...) When possible be specific @ -[No] Did you speak to anyone other than the patient for history (EMS, parent, family, police, friend...)? What history was obtained from this source @ -[No] Did you review nursing and triage notes (agree or disagree)? Why? @ -[I reviewed and agree with nursing and triage notes] Were old charts reviewed (outside hosp., previous admission, EMS record, old EKG, old radiological studies, urgent care reports/EKG's, senior living records)? Report findings @ -[No old charts were reviewed] Differential Diagnosis (chest pain, altered mental status, abdominal pain women, abdominal pain men, vaginal bleeding, weakness, fever, dyspnea, syncope, headache, dizziness, GI bleed, back pain, seizure, CVA, palpatations, mental health, musculoskeletal)? @ -Differential Dyspnea: Coronary syndrome, arrhythmia, tamponade, asthma, COPD, pulmonary embolism, pneumonia, pneumothorax, pulmonary effusion, anaphylaxis, diabetic ketoacidosis, flailed chest, pulmonary contusion, diaphragmatic rupture, anemia, neuromuscular, this is not meant to be an all-inclusive list. EKG interpreted by me (3pts min.). @ -Not done X-rays interpreted by me (1pt min.). @ -[None done] CT interpreted by me (1pt min.). @ -[None done] U/S interpreted by me (1pt. min.). @ -[None done] What testing was considered but not performed or refused? (CT, X-rays, U/S, labs)? Why? @ -[None] What meds were considered but not given or refused? Why? @ -[None] Did you discuss the management of the patient with other professionals (professionals i.e. , PA, SENIOR ENERGY MARKET COORDINATOR, lab, RT, psych nurse, certified social workers in health care, sky line yarder, teacher, commercial credit officer, welfare case worker)? Give summary @ -[No] Was smoking cessation discussed for >3mins.? @ -[No] Was critical care preformed (if so, how long)? @ -[No] Were there social determinants of health that impacted care today? How? (Homelessness, low income, unemployed, alcoholism, drug addiction, transportation, low edu. Level, literacy, decrease access to med. care, nursing home, rehab)? @ -[No] Was there de-escalation of care discussed even if they declined (Discuss DNR or withdrawal of care, Hospice)? DNR status @ -[No] What co-morbidities impacted this encounter? (DM, HTN, Smoking, COPD, CAD, Cancer, CVA, ARF, Chemo, Hep., AIDS, mental health diagnosis, sleep apnea, morbid obesity)? @ -COPD Was patient admitted / discharged? Hospital course, mention meds given and route, prescriptions, significant lab abnormalities, going to OR and other pertinent info. @ -[hospital course] Undiagnosed new problem with uncertain prognosis? @ -[No] Drug Therapy requiring intensive monitoring for toxicity (Heparin, Nitro, Insulin, Cardizem)? @ -[No] Were any procedures done? @ -[No] Diagnosis/symptom? @ -[default] Acute, or Chronic, or Acute on Chronic? @ -Acute Uncomplicated (without systemic symptoms) or Complicated (systemic symptoms)? @ -Uncomplicated Side effects of treatment? @ -[No] Exacerbation, Progression, or Severe Exacerbation? @ -[No] Poses a threat to life or bodily function? How? (Chest pain, [place], [place], pneumonia, PE, COPD, DKA, ARF, appy, cholecystitis, CVA, Diverticulitis, Homicidal, Suicidal, threat to staff... and all critical care pts) @ -[No] - Lab Data Lab Results 05/24/24 Range/Units 17:28 Influenza Type A (PCR) Not Detected (Not Detectd) Influenza Type B (PCR) Not Detected (Not Detectd) RSV (PCR) Not Detected (Not Detectd) SARS-CoV-2 (PCR) Detected A (Not Detectd) Disposition Clinical Impression: COVID-19 Disposition: HOME SELF-CARE Condition: Good Instructions (If sedation given, give patient instructions): COVID-19 (Coronavirus Disease 2019) (ED) Is patient prescribed a controlled substance at d/c from ED?: No Referrals: Viral Landry MD [Primary Care Provider] - 1-2 days Time of Disposition: 19:23
--- NOTE | 2024-05-24 18:41 | XR ---
EXAMINATION TYPE: XR chest 2V DATE OF EXAM: 05/24/2024 6:18 PM COMPARISON: Chest radiographs from 07/06/2018 CLINICAL INDICATION: Female, 73 years old with history of Cough, h/o COPD; [facility] TECHNIQUE: XR chest 2V Frontal and lateral views of the chest. FINDINGS: Lungs/Pleura: There is no evidence of pleural effusion, focal consolidation, or pneumothorax. Pulmonary vascularity: Unremarkable. Heart/mediastinum: Cardiomediastinal silhouette is unremarkable. Musculoskeletal: No acute osseous pathology. IMPRESSION: No acute cardiopulmonary disease/process. [facility], , 05/24/2024 6:39 PM
[2024-05-24] MEDS: methylPREDNISolone SOD SUCCI 125 MG/2 ML VIAL IM ONE (19:04)
[2024-05-24 19:39] VITALS: BP 138/72; PULSE 62; RESP 18; TEMP 98.2
[2024-05-24] MEDS: IPRATROPIUM-ALBUTEROL 3 ML NEB INHALATION STA (22:10)
[2024-05-25] MEDS ORDERED: ALBUTEROL HFA INHALER INHALATION SCH (08:00)
[2024-05-25] MEDS ORDERED: TIOTROPIUM 2.5 MCG INHALER INHALATION SCH (09:00)
== END 2024-05-24 19:35 | disposition home or self-care (01) ==
LOC: EC 17:05
DX: U07.1 COVID-19 (principal); J44.1 Chronic obstructive pulmonary disease with (acute) exacerbation; Z88.5 Allergy status to narcotic agent; Z79.899 Other long term (current) drug therapy
CPT/HCPCS: 87636; 71046; 99283; 96372; J2919